=== PATIENT | female | born 1985 | race Hispanic/Latino ===

== ENCOUNTER 2024-04-15 09:48 | Emergency (ER) | payer SELFPAY ==
[2024-04-15] MEDS ORDERED: ACETAMINOPHEN 1000 MG/100 ML IV STA (10:08)
[2024-04-15 10:24] LABS: BASOPHILS % 0.2 % (0.0-1.0); EOSINOPHILS % 0.1 % (0.0-6.0); HEMATOCRIT 41.2 % (34.2-44.1); HEMOGLOBIN 13.8 g/dL (12.0-16.0); LYMPHOCYTES # (AUTO) 0.6 (1.0-3.2); LYMPHOCYTES % 3.9 % (18.0-39.1); MEAN CORPUSCULAR HEMOGLOBIN 31.7 pg (28-32); MEAN CORPUSCULAR HGB CONC 33.5 g/dL (31-35); MEAN CORPUSCULAR VOLUME 94.5 fL (81-99); MONOCYTES # (AUTO) 0.6 (0.2-0.8); NEUTROPHILS # (AUTO) 14.3 (2.1-6.9); NEUTROPHILS % 91.3 % (38.7-80.0); PLATELET COUNT 269 x10e3/uL (140-360); RED BLOOD COUNT 4.36 x10e6/uL (3.6-5.1); RED CELL DISTRIBUTION WIDTH 11.7 % (11.7-14.4); WHITE BLOOD COUNT 15.66 x10e3/uL (4.8-10.8)
[2024-04-15 10:35] LABS: INR 1.04; PROTHROMBIN TIME 14.2 seconds (11.9-14.5)
[2024-04-15 10:36] LABS: PARTIAL THROMBOPLASTIN TIME 22.3 seconds (23.8-35.5)
[2024-04-15 10:45] LABS: ALANINE AMINOTRANSFERASE 12 IU/L (0-55); ALBUMIN 3.4 g/dL (3.5-5.0); ALBUMIN/GLOBULIN RATIO 0.8 (0.8-2.0); ALKALINE PHOSPHATASE 116 IU/L (40-150); ANION GAP 17.3 mmol/L (8-16); BILIRUBIN,TOTAL 1.5 mg/dL (0.2-1.2); BLOOD UREA NITROGEN 9 mg/dL (7-26); BUN/CREATININE RATIO 11 (6-25); CALCIUM 9.2 mg/dL (8.4-10.2); CARBON DIOXIDE 20 mmol/L (22-29); CHLORIDE 100 mmol/L (98-107); CREATINE KINASE 26 IU/L (29-168); CREATININE, SERUM 0.79 mg/dL (0.57-1.11); EST GLOMERULAR FILTRATION RATE 97 ML/MIN (>=60); GLUCOSE 333 mg/dL (74-118); LIPASE 25 U/L (8-78); MAGNESIUM 1.5 MG/DL (1.3-2.1); SODIUM 134 mmol/L (136-145); TOTAL PROTEIN 7.7 g/dL (6.5-8.1)
[2024-04-15 10:48] LABS: POTASSIUM 3.3 mmol/L (3.5-5.1)
[2024-04-15 10:51] LABS: TROPONIN I 0.008 ng/mL (0-0.300)
[2024-04-15 10:53] LABS: INFLUENZA A AG NEGATIVE (NEGATIVE)
[2024-04-15] MEDS ORDERED: IOPAMIDOL 370 MG/ML 100 ML INFUS..BTL INJ ONE (10:53)
[2024-04-15] MEDS: SODIUM CHLORIDE 0.9% 1000ML 1,000 ML IV STA ×2 (10:53→11:35)
[2024-04-15 10:54] LABS: CORONAVIRUS COVID-19 AG NEGATIVE (NEGATIVE); INFLUENZA B AG NEGATIVE (NEGATIVE)
[2024-04-15] MEDS: ONDANSETRON HCL INJ 2MG/ML 2ML 2 MG/ML VIAL IV STA (10:54)
[2024-04-15 11:05] LABS: CLARITY,URINE CLOUDY (CLEAR); COLOR,URINE YELLOW (YELLOW); PH,URINE 5.5 (5 - 7)
[2024-04-15 11:06] LABS: BILIRUBIN,URINE NEGATIVE (NEGATIVE); GLUCOSE, URINE 500 (NEGATIVE); KETONES,URINE 2+ (NEGATIVE); LEUKOCYTE ESTERASE ,URINE SMALL (NEGATIVE); NITRITE,URINE POSITIVE (NEGATIVE); PROTEIN,URINE DIPSTICK 2+ (NEGATIVE); URINE UROBILINOGEN 0.2 mg/dL (0.2 - 1); WBC,URINE (MAN) >50 /HPF (0-5)
[2024-04-15 11:07] LABS: RBC,URINE 0-5 /HPF (0-5)
[2024-04-15 11:08] LABS: BACTERIA,URINE MANY /HPF; EPITHELIAL CELLS,URINE FEW /LPF
[2024-04-15 11:33] VITALS: PULSE 96; RESP 17; TEMP 99.1
[2024-04-15] MEDS: KETOROLAC TROMETHAMINE 30 MG/ML VIAL IV STA (11:35)
[2024-04-15] MEDS ORDERED: CEFDINIR300 MG PO (12:34)
[2024-04-15] MEDS ORDERED: METFORMIN HCL500 MG PO (12:34)
[2024-04-15] MEDS ORDERED: ONDANSETRON ODT4 MG PO (12:34)
[2024-04-15 12:58] VITALS: BP 114/72; PULSE 89; RESP 17; TEMP 98.8; O2SAT 98
== END 2024-04-15 13:01 | disposition home or self-care (01) ==
LOC: ER 10:01
DX: R50.9 Fever, unspecified (principal); N12 Tubulo-interstitial nephritis, not specified as acute or chronic; R30.0 Dysuria; R11.2 Nausea with vomiting, unspecified; E11.65 Type 2 diabetes mellitus with hyperglycemia
CPT/HCPCS: 36415; 71045; 74177; 80053; 81001; 82550; 83605; 83690; 83735; 84484; 84702; 85025; 85610; 85730; 87040; 87086; 87186; 87428; 93005; 99284; J0696; J1885; J2405; J2470; J7030; Q9967